=== PATIENT | female | born 1955 | race Caucasian/White ===

== ENCOUNTER 2023-03-02 15:22 | Outpatient (CLI) | payer MEDICARE, OTHER ==
[2023-03-02 15:48] LABS: CREATININE 0.6 mg/dL (0.4-1.0)
[2023-03-02] MEDS ORDERED: iohexoL-300 100 ML VIAL ONE (16:14)
[2023-03-02] MEDS ORDERED: iohexoL-300 100 ML VIAL IVP ONE (16:47)
--- NOTE | 2023-03-08 09:06 | CT Report ---
PROCEDURE: ABDOMEN W/WO INDICATIONS: ABN ABD CT CONTRAST: 140ml Omnipaque 300 TECHNIQUE: 4 phase scanning was performed. After the administration of intravenous contrast, 5 mm thick section s acquired from the diaphragm to the symphysis. 5 mm coronal and sagittal reformats were acquired. For radiation dose reduction, the following was used: automated exposure control, adjustment of mA a nd/or kV according to patient size. COMPARISON: None. FINDINGS: Image quality: Good Lower chest: Basal scarring/atelectasis. This is most apparent in middle lobe and lingula. No hiatal hernia. Normal heart size. Solid organs: The liver is unremarkable. Gallbladder is unremarkable. No pathologic dilation of the p ancreatic duct or biliary tree. No splenomegaly. No adrenal nodules. No hydronephrosis. Subcentimeter renal lesions are too small to characterize. Per latest proposed guidelines, no dedicat ed followup is needed, as these are likely cysts. Nonobstructing tiny right renal calculus. In the upper pole the left kidney, there is a 1.1 cm hypoattenuating lesion with no appreciable enhan cement on pre and post contrast imaging (, ). Vessels and lymph nodes: Partially seen left common iliac venous stent graft. No pathologic adenopath y by size criteria. There are anterior abdominal wall venous collaterals. The main portal vein is pat ent. No abdominal aortic aneurysm. Bowel and peritoneum: No evidence of small bowel obstruction, abscess, or pathologic ascites. Body wall: Tiny fat-containing umbilical hernia. Bones: No acute or suspicious osseous finding. IMPRESSION: Reference image , . No prior images are available. Assuming the left upper pole renal lesion is the queried abnormality, this is compatible with a Bosniak 2 nonenhancing renal cyst, for which no follow-up imaging is necess sourav per latest guidelines. No other significant abnormality identified that requires follow-up imagin g. There is a tiny nonobstructing right renal calculus. Reviewed by: Curry Burgos MD on 03/08/2023 9:05 AM PDT Approved by: Curry Burgos MD on 03/08/2023 9:05 AM PDT Station ID: [id number]
== END 2023-03-02 15:23 | disposition home or self-care (01) ==
LOC: LAB 15:22
PROVIDERS: ATTEND Nurse Practitioner
DX: R93.5 Abnormal findings on diagnostic imaging of other abdominal regions, including retroperitoneum (principal); N20.0 Calculus of kidney
CPT/HCPCS: 36415; 74170; 82565; Q9967

== ENCOUNTER 2023-03-10 10:10 | Outpatient (CLI) | payer MEDICARE, OTHER ==
[2023-03-10 11:43] LABS: BASOPHILS # (AUTO) 0.1 10^3/uL (0.0-0.1); BASOPHILS % (AUTO) 1.2 %; EOSINOPHILS # (AUTO) 0.2 10^3/uL (0.0-0.7); HCT - HEMATOCRIT 40.7 % (37.0-47.0); HGB - HEMOGLOBIN 13.6 g/dL (12.0-16.0); LYMPHOCYTES # (AUTO) 1.8 10^3/uL (1.5-3.5); LYMPHOCYTES % (AUTO) 36.1 %; MEAN CORPUSCULAR HEMOGLOBIN 30.8 pg (27.0-31.0); MEAN CORPUSCULAR HGB CONC 33.4 g/dL (32.0-36.0); MEAN CORPUSCULAR VOLUME 92.3 fL (81.0-99.0); MEAN PLATELET VOLUME 9.8 fL (7.9-10.8); MONOCYTES # (AUTO) 0.4 10^3/uL (0.0-1.0); MONOCYTES % (AUTO) 7.7 %; NEUTROPHILS # (AUTO) 2.6 10^3/uL (1.5-6.6); NEUTROPHILS % (AUTO) 51.8 %; PLT - PLATELET COUNT 232 10^3/uL (130-450); RED BLOOD COUNT 4.41 10^6/uL (4.20-5.40); RED CELL DISTRIBUTION WIDTH 12.5 % (12.0-15.0); WHITE BLOOD COUNT 4.9 x10^3/uL (4.8-10.8)
[2023-03-10 12:33] LABS: ALBUMIN 4.7 g/dL (3.2-5.5); ALBUMIN/GLOBULIN RATIO 1.4 (1.0-2.2); ALKALINE PHOSPHATASE 56 IU/L (42-121); ALT ALANINE AMINOTRANSFERASE 19 IU/L (10-60); AST ASPARTATE AMINOTRANSFERASE 27 IU/L (10-42); BILIRUBIN,TOTAL 1.1 mg/dL (0.2-1.0); BUN - BLOOD UREA NITROGEN 14 mg/dL (6-20); CALCIUM 9.6 mg/dL (8.5-10.3); CARBON DIOXIDE - CO2 26 mmol/L (21-32); CHLORIDE 103 mmol/L (101-111); CHOL/HDL RATIO 4.8 (<4.4); CHOLESTEROL 212 mg/dL; CREATININE 0.7 mg/dL (0.4-1.0); GFR - MDRD 84 (>89); GLUCOSE 112 mg/dL (70-100); HDL CHOLESTEROL 44 mg/dL; LDL CHOLESTEROL,CALCULATED 148 mg/dL; LDL/HDL RATIO 3.4 (<4.4); POTASSIUM 4.1 mmol/L (3.5-5.0); SODIUM 136 mmol/L (135-145); TRIGLYCERIDES 102 mg/dL; VLDL CHOLESTEROL 20 mg/dL
[2023-03-10 12:54] LABS: THYROID STIMULATING HORMONE 3.77 uIU/mL (0.34-5.60)
== END 2023-03-10 10:11 | disposition home or self-care (01) ==
LOC: LAB.N 10:10
PROVIDERS: ATTEND Nurse Practitioner
DX: D68.59 Other primary thrombophilia (principal); R93.5 Abnormal findings on diagnostic imaging of other abdominal regions, including retroperitoneum; Z13.220 Encounter for screening for lipoid disorders; F41.9 Anxiety disorder, unspecified
CPT/HCPCS: 36415; 80053; 80061; 83721; 84443; 85025

== ENCOUNTER 2023-04-20 12:57 | Outpatient (CLI) | payer MEDICARE, OTHER ==
--- NOTE | 2023-04-21 10:25 | Mammography Report ---
BILATERAL DIGITAL SCREENING MAMMOGRAM 3D/2D: 04/20/2023 CLINICAL: Routine screening. Comparison is made to exam dated: 10/24/2021 [facility]. There are scattered areas of fibroglandular density in both breasts (category b / 25%-50% glandular t issue). No significant masses, calcifications, or other findings are seen in either breast. There has been no significant interval change. IMPRESSION: NEGATIVE There is no mammographic evidence of malignancy. A 1 year screening mammogram is recommended. Based on the Tyrer Cuzick model (a risk assessment model) the patients lifetime risk is 3.8% and her 10 year risk is 1.9%. According to the ACR, ACS, and NCCN guidelines, an annual breast MRI exam charline g with mammogram is recommended if the patients lifetime risk is 20% or greater. This exam was interpreted at Station ID: [id number]. NOTE: For mammograms, a report in lay terms will be sent to the patient. Approximately 15% of breast malignancies will not be visualized mammographically. In the management of a palpable breast mass, a negative mammogram must not discourage biopsy of a clinically suspicious lesion. Electronically Signed By: Nishant King M.D. [email or web address]:04/20/2023 20:13:15 letter sent: No_Letter ACR BI-RADS Category 1: Negative 3341F PARENCHYMAL PATTERN: (A) - The breast(s) demonstrate(s) scattered fibroglandular densities. BI-RADS CATEGORY: (1) - 1 Mammogram [id number] 1 year screening LATERALITY: (B)
== END 2023-04-20 12:58 | disposition home or self-care (01) ==
LOC: DI 12:57
PROVIDERS: ATTEND Nurse Practitioner
DX: Z12.31 Encounter for screening mammogram for malignant neoplasm of breast (principal)

== ENCOUNTER 2024-03-10 10:06 | Emergency (ER) | payer MEDICARE, OTHER ==
--- NOTE | 2024-03-10 10:23 | ED Physician Documentation ---
PD HPI CHEST PAIN - Stated complaint Stated Complaint: CP/SOA - Chief complaint Chief Complaint: Resp - History obtained from History obtained from: Patient - History of Present Illness Timing - onset: Last night, Yesterday Timing - onset during: Rest, Light activity Timing - duration: Hours Timing - details: Abrupt onset, Still present Quality: Aching, Sharp, Pain Location: Right chest Radiation: No: Neck, Back, Abdominal Improved by: Rest Worsened by: Inspiration, Movement. No: Palpation Associated symptoms: Shortness of air. No: Nausea, Feeling faint / dizzy Similar symptoms before: Diagnosis (similar to PE in the past, after having pelvic surgery/stent. No recent inactivity, procedures, etc at this time. Is still on Xarelto.) Recently seen: Not recently seen Review of Systems Constitutional: denies: Fever, Chills Nose: denies: Rhinorrhea / runny nose, Congestion Throat: denies: Sore throat Respiratory: denies: Cough GI: reports: Nausea. denies: Abdominal Pain, Vomiting PD PAST MEDICAL HISTORY - Past Medical History Past Medical History: Yes Cardiovascular: Hypertension, Deep vein thrombosis, Pulmonary embolism [employer]: Other Other Past Medical History: blood clots - Past Surgical History Past Surgical History: No /[employer]: Tubal ligation - Present Medications Home Medications: Ambulatory Orders Medication Instructions Recorded Confirmed Acyclovir 400 mg PO 5XD 5 Days #25 tablet 03/10/24 HYDROcod/ACETAM 5/325 [[place] 5/325] 1 ea PO Q6H PRN #15 tablet 03/10/24 Lidocaine Patch 5% [Lidoderm Patch] 1 patch TOP DAILY PRN #10 patch 03/10/24 dexAMETHasone [Decadron] 4 mg PO DAILY #5 tablet 03/10/24 - Allergies Allergies/Adverse Reactions: Allergies Allergy/AdvReac Type Severity Reaction Status Date / Time No Known Drug Allergies Allergy Verified 03/10/24 10:13 - Social History Does the pt smoke?: No Smoking Status: Never smoker Does the pt drink ETOH?: No - Immunizations Immunizations are current?: No PD ED PE NORMAL - Vitals Vital signs reviewed: Yes - General General: Alert and oriented X 3, No acute distress, Well developed/nourished - HEENT HEENT: Pharynx benign - Neck Neck: Supple, no meningeal sign, No adenopathy - Cardiac Cardiac: RRR, No murmur - Respiratory Respiratory: Clear bilaterally - Derm Derm: Normal color, Warm and dry - Extremities Extremities: No edema, No calf tenderness / cord - Neuro Neuro: pin inserter 2-12 intact, No motor deficit, No sensory deficit Results - Vitals Vitals: Oxygen O2 Source Room air - EKG (time done) 10:21 EKG releavant findings:: EKG personally interpreted by author of this note. Relevant findings are: Rhythm: NSR (59) Chest [place]: Normal Intervals: Normal [place] QRS: Normal Ischemia: Normal ST segments. No: ST elevation c/w ischemia, ST depression - Labs Labs: Laboratory Tests 03/10/24 03/10/24 03/10/24 10:30 10:30 10:30 WBC 6.4 RBC 4.43 Hgb 13.5 Hct 41.1 MCV 92.8 MCH 30.5 MCHC 32.8 RDW 12.0 Plt Count 231 MPV 9.5 Neut # (Auto) 3.6 Lymph # (Auto) 2.1 [place] # (Auto) 0.4 Eos # (Auto) 0.2 Baso # (Auto) 0.1 Absolute Nucleated RBC 0.00 Nucleated RBC % 0.0 D-Dimer < 200.0 L Sodium 135 Potassium 3.9 Chloride 102 Carbon Dioxide 26 Anion Gap 7.0 BUN 13 Creatinine 0.7 Estimated GFR (MDRD) 84 L Glucose 99 Calcium 10.3 Magnesium 1.9 Total Bilirubin 1.2 H AST 17 ALT 9 L Alkaline Phosphatase 69 Troponin I High Sens 4.0 Total Protein 7.6 Albumin 4.8 Globulin 2.8 Albumin/Globulin Ratio 1.7 Lipase 25 - Rads (name of study) chest xray Relevant Findings:: Prelim report reviewed, EMP independent interpretation of test (no acute process) PD Medical Decision Making - ED course Complexity details: reviewed results, considered differential (she is concerned about PE, despite on DOAC for prior PE. CXR is clear. Sats are good.ECG without ischemic changes. D-dimer is normal. ), d/w patient Departure - Departure Disposition: 01 Home, Self Care Clinical Impression: Right-sided chest pain Condition: Stable Record reviewed to determine appropriate education?: Yes Follow-Up: Edilia Lynn ARNP [Primary Care Provider] - Prescriptions: Acyclovir 400 mg PO 5XD 5 Days #25 tablet dexAMETHasone [Decadron] 4 mg PO DAILY #5 tablet Lidocaine Patch 5% [Lidoderm Patch] 1 patch TOP DAILY PRN #10 patch PRN Reason: pain HYDROcod/ACETAM 5/325 [[place] 5/325] 1 ea PO Q6H PRN #15 tablet PRN Reason: Pain Comments: Your chest x-ray is clear without any signs of pneumonia, fluid around the lungs, collapsed lung. Your EKG and a blood test called troponin are normal so no signs of heart attack/heart failure. A blood test called D-dimer is negative which would then exclude any blood clots as a cause. Your other basic blood count and electrolytes and blood sugar are good. At this point the area of pain and tenderness in the location of it would be characteristic of a nerve root pattern. This can be from muscular pain or ankle encroachment on the nerve from some arthritis or disc. With some tenderness along the line by the armpit and lateral breast, I would also consider developing shingles as a possibility. There is no rash at this time but you may develop 1. Otherwise would treat it with a combination of anti-inflammatories as well as a antiviral medication. I also prescribed some lidocaine patches to use in the area of most tenderness. Tylenol 500 to 650 mg 4 times daily regularly for the next several days to week. Add hydrocodone/acetaminophen every 4-6 hours if needed for pain. See how this does over the next several days if it tapers down and improves. There may be some level of pain even for a week or 2 or 3 if this is shingles. Repeat check with your primary or back to the ER or walk-in if not improving at all over the next few days or if new symptoms develop. I sent a prescription to the [facility] pharmacy at your request. I am prescribing a short course of narcotic pain medication for you. These are potentially dangerous and addictive medications that should be used carefully. These medications may constipate you. Take an [id number]-gjl-ptefbav stool softener such as docusate twice daily with plenty of water while taking these medications. If you go 24 hours without a bowel movement, take olwf-juv-livglil MiraLAX, per package instructions. Do not drink or drive while taking these medications. If you received narcotic or sedating medications while in the emergency department do not drive for 24 hours. Store this medication in a safe, secure place and out of reach of children. It is a violation of federal law to give or sell this medication to another person or to use in a manner other than prescribed. The ED will not refill narcotic prescriptions, including prescriptions lost or stolen. You can dispose of unwanted medications at the [facility]'s office or at several pharmacies such as [facility] [place]. Forms: PCP List Discharge Date/Time: 03/10/24 13:13
[2024-03-10 11:09] LABS: BASOPHILS # (AUTO) 0.1 10^3/uL (0.0-0.1); BASOPHILS % (AUTO) 0.9 %; EOSINOPHILS # (AUTO) 0.2 10^3/uL (0.0-0.7); EOSINOPHILS % (AUTO) 2.5 %; HCT - HEMATOCRIT 41.1 % (37.0-47.0); HGB - HEMOGLOBIN 13.5 g/dL (12.0-16.0); LYMPHOCYTES # (AUTO) 2.1 10^3/uL (1.5-3.5); LYMPHOCYTES % (AUTO) 33.4 %; MEAN CORPUSCULAR HEMOGLOBIN 30.5 pg (27.0-31.0); MEAN CORPUSCULAR HGB CONC 32.8 g/dL (32.0-36.0); MEAN CORPUSCULAR VOLUME 92.8 fL (81.0-99.0); MEAN PLATELET VOLUME 9.5 fL (7.9-10.8); MONOCYTES # (AUTO) 0.4 10^3/uL (0.0-1.0); MONOCYTES % (AUTO) 6.7 %; NEUTROPHILS # (AUTO) 3.6 10^3/uL (1.5-6.6); NEUTROPHILS % (AUTO) 56.3 %; PLT - PLATELET COUNT 231 10^3/uL (130-450); RED BLOOD COUNT 4.43 10^6/uL (4.20-5.40); WHITE BLOOD COUNT 6.4 x10^3/uL (4.8-10.8)
[2024-03-10 11:19] LABS: ALBUMIN 4.8 g/dL (3.2-5.5); ALBUMIN/GLOBULIN RATIO 1.7 (1.0-2.2); BILIRUBIN,TOTAL 1.2 mg/dL (0.2-1.0); CALCIUM 10.3 mg/dL (8.5-10.3); CREATININE 0.7 mg/dL (0.6-1.3); MAGNESIUM 1.9 mg/dL (1.7-2.3); POTASSIUM 3.9 mmol/L (3.5-4.5); TOTAL PROTEIN 7.6 g/dL (6.4-8.9)
[2024-03-10] MEDS: HYDROmorphone 0.5 MG/0.5 ML SYRINGE IVP STA (11:21)
[2024-03-10] MEDS: KETOROLAC 15 MG/ML VIAL IVP STA (11:21)
[2024-03-10 12:39] VITALS: O2SAT 98
--- NOTE | 2024-03-10 13:06 | XRAY Report ---
PROCEDURE: Chest 1V INDICATIONS: Chest Pain TECHNIQUE: One view of the chest was acquired. COMPARISON: None. FINDINGS: Surgical changes and devices: None. Lungs and pleura: No pleural effusions or pneumothorax. Lungs are clear. Mediastinum: Mediastinal contours appear normal. Heart size is normal. Bones and chest wall: No suspicious bony lesions. Overlying soft tissues appear unremarkable. IMPRESSION: No acute cardiopulmonary process. Reviewed by: Richard Lyn MD on 03/10/2024 1:05 PM PDT Approved by: Richard Lyn MD on 03/10/2024 1:05 PM PDT Station ID: [id number]
[2024-03-10 13:11] VITALS: BP 137/75
== END 2024-03-10 13:13 | disposition home or self-care (01) ==
LOC: ED 10:06
DX: R07.89 Other chest pain (principal); I10 Essential (primary) hypertension; Z86.711 Personal history of pulmonary embolism; Z79.01 Long term (current) use of anticoagulants; Z86.718 Personal history of other venous thrombosis and embolism
CPT/HCPCS: 36415; 80053; 83690; 83735; 84484; 85025; 85379; 93005; 99284

== ENCOUNTER 2024-06-15 12:55 | Outpatient (CLI) | payer MEDICARE, OTHER ==
[2024-06-15 13:42] LABS: CALCIUM 10.1 mg/dL (8.5-10.3); CREATININE 0.6 mg/dL (0.6-1.3); POTASSIUM 4.1 mmol/L (3.5-4.5)
--- NOTE | 2024-06-15 14:32 | XRAY Report ---
PROCEDURE: Hip w/Pelvis 2-3V RT INDICATIONS: RIGHT HIP PAIN TECHNIQUE: 2 views of the hip were acquired. COMPARISON: None. FINDINGS: Bones: No fractures or dislocations. No suspicious bony lesions. Nonuniform joint space narrowing with osteophytic lipping of the acetabulum. Soft tissues: No suspicious soft tissue calcifications or masses. Vascular stent present. Surgical clip projects over the left pubic ring. IMPRESSION: No acute bony abnormality. Mild right hip osteoarthritis. Reviewed by: Marc Palomares MD on 06/15/2024 2:31 PM PDT Approved by: Marc Palomares MD on 06/15/2024 2:31 PM PDT Station ID: [id number]
--- NOTE | 2024-06-16 13:03 | XRAY Report ---
PROCEDURE: Knee 4+V RT INDICATIONS: RIGHT KNEE PAIN TECHNIQUE: 3 views of the knee was obtained. COMPARISON: None FINDINGS: Bones: No fractures or dislocations. No suspicious bony lesions. Soft tissues: No knee joint effusion. No suspicious soft tissue calcifications or masses. IMPRESSION: Moderate medial compartment joint space narrowing Reviewed by: Buddy Romano MD on 06/16/2024 12:01 PM AKDT Approved by: Buddy Romano MD on 06/16/2024 12:01 PM AKDT Station ID: [id number]
== END 2024-06-15 12:56 | disposition home or self-care (01) ==
LOC: LAB 12:55
PROVIDERS: ATTEND Internal Medicine Hematology
DX: I82.90 Acute embolism and thrombosis of unspecified vein (principal); M25.561 Pain in right knee; M25.861 Other specified joint disorders, right knee; M16.11 Unilateral primary osteoarthritis, right hip
CPT/HCPCS: 36415; 80048

== ENCOUNTER 2024-06-15 12:58 | Outpatient (CLI) | payer MEDICARE, OTHER ==
--- NOTE | 2024-06-16 15:34 | Mammography Report ---
BILATERAL DIGITAL SCREENING MAMMOGRAM 3D/2D WITH EXAGGERATED CC: 06/15/2024 CLINICAL: Routine screening. Comparison is made to exams dated: 04/20/2023 mammogram - [facility] and [facility] There are scattered areas of fibroglandular density in both breasts (category b / 25%-50% glandular t issue). No significant masses, calcifications, or other findings are seen in either breast. There has been no significant interval change. IMPRESSION: NEGATIVE There is no mammographic evidence of malignancy. A 1 year screening mammogram is recommended. Based on the Tyrer Cuzick model (a risk assessment model) the patient's lifetime risk is 7.8% and her 10 year risk is 4.1%. According to the ACR, ACS, and NCCN guidelines, an annual breast MRI exam charilne g with mammogram is recommended if the patient's lifetime risk is 20% or greater. This exam was interpreted at Station ID: [id number]. NOTE: For mammograms, a report in lay terms will be sent to the patient. Approximately 15% of breast malignancies will not be visualized mammographically. In the management of a palpable breast mass, a negative mammogram must not discourage biopsy of a clinically suspicious lesion. Electronically Signed By: Sandra [email or web address]/gagan:06/15/2024 16:30:07 letter sent: No_Letter ACR BI-RADS Category 1: Negative 3341F PARENCHYMAL PATTERN: (A) - The breast(s) demonstrate(s) scattered fibroglandular densities. BI-RADS CATEGORY: (1) - 1 RECOMMENDATION: (ANNUAL) - Recommend routine annual screening mammography. [id number] 1 year screening LATERALITY: (B)
== END 2024-06-15 12:59 | disposition home or self-care (01) ==
LOC: DI 12:58
PROVIDERS: ATTEND Nurse Practitioner
DX: Z12.31 Encounter for screening mammogram for malignant neoplasm of breast (principal); R92.323 Mammographic fibroglandular density, bilateral breasts

== ENCOUNTER 2024-06-15 13:07 | Outpatient (CLI) | payer MEDICARE, OTHER ==
--- NOTE | 2024-06-15 17:31 | DEXA Report ---
PROCEDURE: Dexa Spine and/or Hip INDICATIONS: POST MENOPAUSAL TECHNIQUE: Dual energy x-ray absorptiometry (DXA) was performed on a [employer] System. Regions measur ed are the AP Spine, femoral neck, and if needed forearm. COMPARISON: None FINDINGS: Lumbar Spine: Bone Mineral Density: 1.027 g/cm/cm,T score: -1.3. Left Femoral Neck: Bone Mineral Density: 0.685 g/cm/cm, T score: -2.5. Left Hip: Bone Mineral Density: 0.762 g/cm/cm,T score: -1.9. FRAX risk factors: None given. 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 Patients with diagnosis of osteoporosis or osteopenia should have regular bone mineral density assess ment. For those eligible for Medicare, routine testing is allowed once every 2 years. Testing frequ ency can be increased for patients who have rapidly progressing disease or for those who are receivin g medical therapy to restore bone mass. Reviewed by: Tonja Turner MD on 06/15/2024 5:29 PM PDT Approved by: Tonja Turner MD on 06/15/2024 5:29 PM PDT Station ID: [id number]
== END 2024-06-15 13:08 | disposition home or self-care (01) ==
LOC: DI 13:07
PROVIDERS: ATTEND Nurse Practitioner
DX: M81.0 Age-related osteoporosis without current pathological fracture (principal); Z78.0 Asymptomatic menopausal state; I82.90 Acute embolism and thrombosis of unspecified vein; M25.561 Pain in right knee; M25.861 Other specified joint disorders, right knee; M16.11 Unilateral primary osteoarthritis, right hip
CPT/HCPCS: 36415; 80048